=== PATIENT | male | born 1945 | race Caucasian/White ===

== ENCOUNTER → 2016-07-11 | Outpatient (REF) | payer OTHER ==
[2016-07-12 11:35] LABS: ALBUMIN 3.8 GM/DL (3.2-5.2); ALBUMIN/GLOBULIN RATIO 1.27 (1.00-1.93); ALKALINE PHOSPHATASE 101 U/L (45-117); ALT/SGPT 32 U/L (12-78); ANION GAP 9 MEQ/L (8-16); AST/SGOT 22 U/L (15-37); BILIRUBIN,TOTAL 0.4 MG/DL (0.2-1.0); BLOOD UREA NITROGEN 18 MG/DL (7-18); CALCIUM LEVEL 8.9 MG/DL (8.8-10.2); CARBON DIOXIDE LEVEL 28 MEQ/L (21-32); CHLORIDE LEVEL 106 MEQ/L (98-107); CHOLESTEROL LEVEL 300 MG/DL (<200); CREATININE FOR GFR 1.48 MG/DL (0.70-1.30); GLOMERULAR FILTRATION RATE 50.3 (>49); GLUCOSE, FASTING 107 MG/DL (80-110); POTASSIUM SERUM 4.2 MEQ/L (3.5-5.1); SODIUM LEVEL 143 MEQ/L (136-145); TOTAL PROTEIN 6.8 GM/DL (6.4-8.2); TRIGLYCERIDES LEVEL 497 MG/DL (<150)
== END ==
LOC: M SFHCCLAY 15:26
PROVIDERS: ATTEND Family Medicine
DX: I10 Essential (primary) hypertension (principal); E78.5 Hyperlipidemia, unspecified; E89.0 Postprocedural hypothyroidism; Z23 Encounter for immunization
CPT/HCPCS: 80053; 80061; 84443; 90662; G0008; G0463

== ENCOUNTER → 2017-01-23 | Outpatient (REF) | payer OTHER ==
[2017-01-24 12:58] LABS: ALBUMIN 3.9 GM/DL (3.2-5.2); ALBUMIN/GLOBULIN RATIO 1.22 (1.00-1.93); ALKALINE PHOSPHATASE 87 U/L (45-117); ALT/SGPT 30 U/L (12-78); ANION GAP 9 MEQ/L (8-16); AST/SGOT 17 U/L (15-37); BILIRUBIN,TOTAL 0.7 MG/DL (0.2-1.0); BLOOD UREA NITROGEN 17 MG/DL (7-18); CALCIUM LEVEL 9.2 MG/DL (8.8-10.2); CARBON DIOXIDE LEVEL 25 MEQ/L (21-32); CHLORIDE LEVEL 106 MEQ/L (98-107); CHOLESTEROL LEVEL 255 MG/DL (<200); CREATININE FOR GFR 1.24 MG/DL (0.70-1.30); GLOMERULAR FILTRATION RATE > 60.0 (>49); GLUCOSE, FASTING 129 MG/DL (80-110); POTASSIUM SERUM 3.9 MEQ/L (3.5-5.1); SODIUM LEVEL 140 MEQ/L (136-145); TOTAL PROTEIN 7.1 GM/DL (6.4-8.2); TRIGLYCERIDES LEVEL 319 MG/DL (<150)
== END ==
LOC: M SFHCCLAY 14:24
PROVIDERS: ATTEND Family Medicine
DX: E78.5 Hyperlipidemia, unspecified (principal); E89.0 Postprocedural hypothyroidism
CPT/HCPCS: 80053; 80061; 84443; 90670; G0009; G0463

== ENCOUNTER → 2018-05-25 | Outpatient (REF) | payer OTHER ==
[2018-05-25 18:43] LABS: ALBUMIN 3.6 GM/DL (3.2-5.2); ALBUMIN/GLOBULIN RATIO 1.09 (1.00-1.93); ALKALINE PHOSPHATASE 88 U/L (45-117); ALT/SGPT 31 U/L (12-78); ANION GAP 7 MEQ/L (8-16); AST/SGOT 22 U/L (7-37); BILIRUBIN,TOTAL 0.5 MG/DL (0.2-1.0); BLOOD UREA NITROGEN 14 MG/DL (7-18); CALCIUM LEVEL 8.4 MG/DL (8.8-10.2); CARBON DIOXIDE LEVEL 28 MEQ/L (21-32); CHLORIDE LEVEL 104 MEQ/L (98-107); CHOLESTEROL LEVEL 220 MG/DL (<200); CHOLESTEROL RISK RATIO 7.096 (<5); CREATININE FOR GFR 1.19 MG/DL (0.70-1.30); GLOMERULAR FILTRATION RATE > 60.0 (>42); GLUCOSE, FASTING 93 MG/DL (70-100); HDL CHOLESTEROL 31 MG/DL (>40); LDL CHOLESTEROL 122 MG/DL (<100); NON-HDL-C 189 MG/DL; POTASSIUM SERUM 4.3 MEQ/L (3.5-5.1); SODIUM LEVEL 139 MEQ/L (136-145); THYROID STIMULATING HORMONE 0.802 uIU/ML (0.358-3.740); TOTAL PROTEIN 6.9 GM/DL (6.4-8.2); TRIGLYCERIDES LEVEL 337 MG/DL (<150)
== END ==
LOC: M SFHCCLAY 11:52
DX: I10 Essential (primary) hypertension (principal); E89.0 Postprocedural hypothyroidism
CPT/HCPCS: 84443

== ENCOUNTER → 2018-12-06 | Outpatient (REF) | payer MEDICARE ==
[2018-12-07 13:15] LABS: BLOOD UREA NITROGEN 16 MG/DL (7-18); CHLORIDE LEVEL 105 MEQ/L (98-107); CREATININE FOR GFR 1.23 MG/DL (0.70-1.30); GLOMERULAR FILTRATION RATE > 60.0 (>42); GLUCOSE, FASTING 89 MG/DL (70-100); POTASSIUM SERUM 4.3 MEQ/L (3.5-5.1); SODIUM LEVEL 138 MEQ/L (136-145)
[2018-12-07 13:16] LABS: ALBUMIN 3.8 GM/DL (3.2-5.2); ALT/SGPT 31 U/L (12-78); BILIRUBIN,TOTAL 0.6 MG/DL (0.2-1.0); CALCIUM LEVEL 8.7 MG/DL (8.8-10.2); CARBON DIOXIDE LEVEL 27 MEQ/L (21-32); CHOLESTEROL LEVEL 245 MG/DL (<200); CHOLESTEROL RISK RATIO 7.205 (<5); HDL CHOLESTEROL 34 MG/DL (>40); NON-HDL-C 211 MG/DL; THYROID STIMULATING HORMONE 0.976 uIU/ML (0.358-3.740); TOTAL PROTEIN 7.3 GM/DL (6.4-8.2); TRIGLYCERIDES LEVEL 425 MG/DL (<150)
== END ==
LOC: M SFHCCLAY 14:59
PROVIDERS: ATTEND Family Medicine
DX: E78.5 Hyperlipidemia, unspecified (principal); E89.0 Postprocedural hypothyroidism
CPT/HCPCS: 80053; 80061; 84443; G0463

== ENCOUNTER → 2019-12-09 | Outpatient (REF) | payer MEDICARE ==
[2019-12-10 11:52] LABS: BASO % 0.4 % (0.0-1.0); EOS # 0.3 10^3/uL (0.0-0.5); EOS % 4.3 % (0.0-3.0); HEMATOCRIT 45.6 % (42.0-52.0); HEMOGLOBIN 15.1 g/dl (13.5-17.5); LYMPH # 1.9 10^3/uL (1.5-5.0); LYMPH % 27.7 % (24.0-44.0); MEAN CORPUSCULAR HEMOGLOBIN 29.3 pg (27.0-33.0); MEAN CORPUSCULAR HGB CONC 33.1 g/dl (32.0-36.5); MEAN CORPUSCULAR VOLUME 88.5 fl (80.0-96.0); MONO # 0.6 10^3/uL (0.0-0.8); MONO % 8.4 % (0.0-5.0); NEUTROPHILS # 4.1 10^3/uL (1.5-8.5); NEUTROPHILS % 58.9 % (36.0-66.0); PLATELET COUNT, AUTOMATED 212 10^3/uL (150-450); RED BLOOD COUNT 5.15 10^6/uL (4.30-6.10)
[2019-12-10 12:23] LABS: ALBUMIN 3.9 GM/DL (3.2-5.2); ALT/SGPT 51 U/L (12-78); BILIRUBIN,TOTAL 0.9 MG/DL (0.2-1.0); BLOOD UREA NITROGEN 13 MG/DL (7-18); CALCIUM LEVEL 9.2 MG/DL (8.8-10.2); CARBON DIOXIDE LEVEL 27 MEQ/L (21-32); CHLORIDE LEVEL 105 MEQ/L (98-107); CHOLESTEROL LEVEL 231 MG/DL (<200); GLOMERULAR FILTRATION RATE > 60.0 (>42); GLUCOSE, FASTING 90 MG/DL (70-100); HDL CHOLESTEROL 33 MG/DL (>40); LDL CHOLESTEROL 144 MG/DL (<100); NON-HDL-C 198 MG/DL; POTASSIUM SERUM 4.1 MEQ/L (3.5-5.1); SODIUM LEVEL 138 MEQ/L (136-145); THYROID STIMULATING HORMONE 0.594 uIU/ML (0.358-3.740); TOTAL PROTEIN 7.1 GM/DL (6.4-8.2); TRIGLYCERIDES LEVEL 270 MG/DL (<150)
== END ==
LOC: M SFHCCLAY 14:07
PROVIDERS: ATTEND Family Medicine
DX: I10 Essential (primary) hypertension (principal); E78.5 Hyperlipidemia, unspecified; E89.0 Postprocedural hypothyroidism
CPT/HCPCS: 80053; 80061; 84443; 85025; G0463

== ENCOUNTER → 2020-06-30 | Outpatient (CLI) | payer MEDICARE ==
--- NOTE | 2020-06-30 15:59 | REP ---
INDICATION: STENOSIS. COMPARISON: Comparison MRI study is from June 25, 2013.. TECHNIQUE: Sagittal and axial T1 and T2-weighted scans are acquired in the usual fashion with and without fat saturation. Sequences include spin echo, turbo spin-echo, and STIR imaging sequences. FINDINGS: There is slight straightening. Lumbar vertebral body heights are preserved. Alignment is unchanged except at L4-5 where there is a very subtle degenerative 2 mm spondylolisthesis. There is no evidence of spondylolysis. Degenerative disc and osteoarthritic facet changes are noted diffusely. Vacuum phenomena are present at L3-4 L2-3 and L1-2. There is some dilation visible in the infrarenal abdominal aortic caliber. The anterior edge of the abdominal aorta is excluded from the field of view but it is right to left dimension is 2.9 cm. In 2013, this measurement was 2.8 cm. Axial and sagittal images at L1-2 demonstrate diffuse posterior disc bulging. There is moderate central canal stenosis due to diffuse disc bulging, developmentally short pedicles, and ligamentum flavum and facet hypertrophy. Midline AP dimension of the thecal sac at L1-2 is 7 mm. These findings are essentially unchanged. There is some disc bulging and facet hypertrophy encroaching on the foramina bilaterally also unchanged. At L2-L3, the previous study showed a left paracentral focal disc protrusion. This is no longer apparent. There is diffuse disc bulging and mild to moderate central canal stenosis is present but no focal disc protrusion is visible. No nerve root compression is seen. Midline AP dimension of the thecal sac at L2-3 is 9.1 mm. At L3-L4, there is mild central canal stenosis due to diffuse disc bulging in combination with facet and ligamentum flavum hypertrophy. There is bilateral neural foraminal narrowing from disc bulging and associated spurring in combination with facet hypertrophy. These findings are similar to the prior study from 2013. AP dimension of the thecal sac at L3-4 in the midline is 8.8 mm. At L 4 5, in addition to the 2 mm degenerative spondylolisthesis, there is minimal diffuse bulging of the disc margin. There is advanced osteoarthritic facet disease right more so than left. This appears progressed compared to the 2013 study. Canal size is borderline. There is bilateral neural foraminal narrowing. The neural foraminal narrowing may be slightly more prominent as well. No focal disc protrusion. At L5-S1, there is osteoarthritic facet hypertrophy and bilateral neural foraminal narrowing from disc spur discogenic spurring and facet hypertrophy. No canal stenosis is seen. Mild diffuse disc bulging. Findings are felt to be unchanged at L5-S1. IMPRESSION: Advanced degenerative spondylosis with multilevel neural foraminal narrowing. Improvement is noted at L2-3 with progressive osteoarthritic facet disease and bilateral neural foraminal narrowing at L5-S1. Multilevel spinal stenosis as above. Some degree of dilation is seen in the abdominal aorta. The anterior wall is not included in the imaging field of view. Consider abdominal aortic sonography. <Electronically signed by Lonny Rivera > 06/30/20 [id number]
== END ==
LOC: M RAD 14:39
PROVIDERS: ATTEND Family Medicine
DX: M48.062 Spinal stenosis, lumbar region with neurogenic claudication (principal); M51.36 Other intervertebral disc degeneration, lumbar region; M51.37 Other intervertebral disc degeneration, lumbosacral region

== ENCOUNTER → 2020-10-22 | Outpatient (CLI) | payer MEDICARE ==
[~2020-10-22] MED LIST: AMLO2.5T3 PO; CLOP75TA2 PO; CYCL5TAB PO; D31000TA2 PO; ECOT325T7 PO; GABA-1171 PO; HYDR-4514 PO; LEVO150T7 PO; MED REC COMMENT; METH-1165 PO; METO1TAB87 PO; METO25TA4 PO; PRAV40TA2 PO; PRED10TA2 PO; TIZA4TAB4 PO; TRAM50TA2 PO
--- NOTE | 2020-10-22 15:28 | REP ---
INDICATION: [id number] INJURY LOW BACK. COMPARISON: MRI 06/30/2020. TECHNIQUE: Five views lumbosacral spine. FINDINGS: There is very mild loss of height of L1 through L3 unchanged. Moderate diffuse spurring is noted. There is moderate disc space narrowing and subchondral sclerosis with vacuum at L1-2. There is slight narrowing at L2-3 with subchondral sclerosis and vacuum. There is mild narrowing of L 3-4 with subchondral sclerosis and vacuum. There is mild narrowing at L4-5 with subchondral sclerosis. There is moderate narrowing at L5-S1 with subchondral sclerosis and vacuum. There is significant sclerosis and spurring at the posterior facets of L4-5 and L5-S1. There are quite large osteophytes on the right at L1 through L4. There is mild curvature toward the left. The posterior elements are intact. IMPRESSION: Stable mild compression deformities of L1 through L3. Diffuse degenerative changes as above. <Electronically signed by Constantino Santiago > 10/22/20 [id number]
== END ==
LOC: M CLY 14:50
PROVIDERS: ATTEND Physician Assistant
DX: M51.36 Other intervertebral disc degeneration, lumbar region (principal); M51.37 Other intervertebral disc degeneration, lumbosacral region
CPT/HCPCS: 72110; G0463

== ENCOUNTER 2020-11-01 16:20 | Observation (INO) | payer MEDICARE ==
[~2020-11-01] VITALS: Ht 167.6 cm; Wt 126.6 kg
[2020-11-01] MEDS ORDERED: TIZA4TAB4 PO (16:54)
[2020-11-01] MEDS ORDERED: METO1TAB87 PO (16:54)
[2020-11-01] MEDS ORDERED: TRAM50TA2 PO (16:54)
[2020-11-01] MEDS ORDERED: PRAV40TA2 PO (16:54)
[2020-11-01] MEDS ORDERED: AMLO2.5T3 PO (16:54)
[2020-11-01] MEDS ORDERED: GABA-1171 PO (16:54)
[2020-11-01] MEDS ORDERED: LEVO150T7 PO (16:54)
[2020-11-01] MEDS ORDERED: CLOP75TA2 PO (16:54)
[2020-11-01] MEDS ORDERED: dexameTHASONE 20MG/5ML VIAL (J1100 PER 1MG) IV ONE (18:20)
[2020-11-01] MEDS ORDERED: ONDANSETRON 4MG/2ML VIAL IV ONE (18:20)
[2020-11-01] MEDS: MORPHINE 4 MG/ML 1ML VIAL/SYRINGE (J2270) IV PRN ×2 (19:27→21:08)
[2020-11-01 19:31] LABS: BASO % 0.3 % (0.0-1.0); EOS # 0.1 10^3/uL (0.0-0.5); EOS % 1.1 % (0.0-3.0); HEMATOCRIT 45.4 % (42.0-52.0); HEMOGLOBIN 15.3 g/dl (13.5-17.5); LYMPH # 2.2 10^3/uL (1.5-5.0); LYMPH % 21.4 % (24.0-44.0); MEAN CORPUSCULAR HEMOGLOBIN 29.5 pg (27.0-33.0); MEAN CORPUSCULAR HGB CONC 33.7 g/dl (32.0-36.5); MEAN CORPUSCULAR VOLUME 87.5 fl (80.0-96.0); MONO # 1.2 10^3/uL (0.0-0.8); MONO % 11.4 % (2.0-8.0); NEUTROPHILS # 6.8 10^3/uL (1.5-8.5); NEUTROPHILS % 64.8 % (36.0-66.0); PLATELET COUNT, AUTOMATED 321 10^3/uL (150-450); RED BLOOD COUNT 5.19 10^6/uL (4.30-6.10); WHITE BLOOD COUNT 10.5 10^3/uL (4.0-10.0)
[2020-11-01 20:00] LABS: BLOOD UREA NITROGEN 19 MG/DL (7-18); CALCIUM LEVEL 9.1 MG/DL (8.8-10.2); CARBON DIOXIDE LEVEL 25 MEQ/L (21-32); CHLORIDE LEVEL 97 MEQ/L (98-107); CREATININE FOR GFR 1.13 MG/DL (0.70-1.30); GLOMERULAR FILTRATION RATE > 60.0 (>42); GLUCOSE, FASTING 81 MG/DL (70-100); POTASSIUM SERUM 4.5 MEQ/L (3.5-5.1); SODIUM LEVEL 131 MEQ/L (136-145)
[2020-11-01] MEDS ORDERED: LORazepam 2 MG/ML VIAL IV STA (20:03)
[2020-11-01] MEDS ORDERED: METOPROLOL TART 25 MG TABLET PO SCH (21:00)
--- NOTE | 2020-11-01 21:44 | REPVR ---
PROCEDURE INFORMATION: Exam: MR Lumbar Spine Without Contrast Exam date and time: 11/01/2020 6:20 PM Age: 74 years old Clinical indication: Low back pain; Additional info: Sudden increase in pain with radiculopathy R/O darya TECHNIQUE: Imaging protocol: Multiplanar magnetic resonance images of the lumbar spine without intravenous contrast. COMPARISON: MRI-Spine, L.S. without con 06/30/2020 3:02 PM FINDINGS: Vertebrae: Unremarkable. Spinal cord: Normal signal. No cord compression. L1-L2: Disc bulge. Bilateral facet and ligamentum flavum hypertrophy. Moderate to severe spinal canal stenosis. Severe bilateral neural foraminal narrowing. L2-L3: Disc bulge. Bilateral facet and ligamentum flavum hypertrophy. Moderate to severe spinal canal stenosis. Moderate to severe bilateral neural foraminal narrowing. L3-L4: Disc bulge. Bilateral facet and ligamentum flavum hypertrophy. Mild to moderate spinal canal stenosis. Severe bilateral neural foraminal narrowing. L4-L5: Disc bulge. Bilateral facet and ligamentum flavum hypertrophy. No spinal canal stenosis. Severe bilateral neural foraminal narrowing. L5-S1: Disc bulge. Bilateral facet hypertrophy. No spinal canal stenosis. Severe bilateral neural foraminal narrowing. Soft tissues: Unremarkable. IMPRESSION: Multilevel degenerative disc disease with neural foraminal narrowing. Findings have progressed from prior study. Moderate to severe spinal canal stenosis at L1-L2, L2-L3, mild to moderate L3-L4. Severe bilateral neural foraminal narrowing at L1-L2, moderate to severe bilateral L2-L3, severe bilateral L3-L4, L4-L5 and L5-S1. Electronically signed by: Yury Hall On 11/01/2020 21:44:32 PM
[2020-11-01] MEDS ORDERED: ACETAMINOPHEN TAB 650MG DOSE (2X325MG) PO PRN (22:00)
[2020-11-01] MEDS ORDERED: MOM 30ML SUSPENSION UDC PO PRN (22:00)
[2020-11-01] MEDS ORDERED: MORPHINE 4 MG/ML 1ML VIAL/SYRINGE (J2270) IV PRN (22:00)
[2020-11-01] MEDS ORDERED: MAALOX 30 ML SUSP *UDC PO PRN (22:00)
[2020-11-01] MEDS ORDERED: METO25TA4 PO (22:17)
[2020-11-01] MEDS ORDERED: PRED10TA2 PO (22:17)
--- NOTE | 2020-11-01 22:18 | HPEPDOC ---
[facility] Medical History & Physical Date of Admission November 01, 2020 Date of Service: November 01, 2020 History and Physical CHIEF COMPLAINT: Back pain HISTORY OF PRESENT ILLNESS: 74-year-old male seen in the emergency department accompanied by his son Jose. Patient is very hard of hearing history was obtained from both patient and his son Jose. He has a known history of spinal stenosis and presented with uncontrollable back pain. Tells me that he was riding a tractor about 2 weeks ago mowing the lawn when he noticed his back starting to hurt and ever since his been hurting progressively more he has difficulty using his 's walker to be able to get around to alleviate some of the pain. Tells me the pain is mostly around the low back is alleviated with rest and holding still and aggravated with movements. He rates the pain as 10 out of 10 at its worst. Currently manageable with the morphine he received in the emergency department and is feeling a lot better. However he is son Jose is concerned based it might fall because of how severe his pain gets. He is not received epidural injections in the past and has not been seen by pain specialist before. He takes tramadol at home for the pain but hasn't been helping as much lately. MRI of his back performed in the emergency department results below showing worsening of spinal stenosis. He follows with orthopedic surgery Dr. Portillo at his clinic and had been not eligible for back surgery due to his weight and was asked to lose weight first. Other than the back pain he otherwise feels well he denies any chest pain or shortness of breath denies abdominal pain no fevers or chills. He doesn't have problems controlling his stool or urine. Trying to move around to use a urinal is very painful on his back as it has lately been causing his back to spasm. PAST MEDICAL/SURGICAL HISTORY: Coronary artery disease with stenting 2013 & 2017 Hypothyroidism Hypertension Hyperlipidemia Osteoarthritis Sleep apnea uses CPAP machine Appendectomy SOCIAL HISTORY: Drinks 2-3 shots of vodka in his coffee daily but hasn't had it for the past several weeks according to some Denies tobacco use currently quit but can't tell me when Denies illicit drug use FAMILY HISTORY: Reviewed and none contributory to this admission ALLERGIES: Please see below. REVIEW OF SYSTEMS: 10 point review of systems complete all negative otherwise stated in HPI HOME MEDICATIONS: Please see below. PHYSICAL EXAMINATION: Constitutional: Awake and alert, in no apparent distress when laying still but appears uncomfortable when trying to move around, very difficult of hearing ENT: Sclera are clear. Mucosa is moist. Respiratory: Lungs CTA bilaterally. No respiratory distress. Cardiovascular: Regular heart rate and rhythm Gastrointestinal: Abdomen is soft, non distended, non tender Musculoskeletal: No lower extremity edema. Neurologic: No focal neurological deficit. Mental Status: A&O x3, normal affect Skin: No visible rashes LABORATORY DATA: See below. IMAGING: See chart MRI lumbar spine w/o contrast IMPRESSION: Multilevel degenerative disc disease with neural foraminal narrowing. Findings have progressed from prior study. Moderate to severe spinal canal stenosis at L1-L2, L2-L3, mild to moderate L3-L4. Severe bilateral neural foraminal narrowing at L1-L2, moderate to severe bilateral L2-L3, severe bilateral L3-L4, L4-L5 and L5-S1. MICROBIOLOGY: Please see below. ASSESSMENT/PLAN 74-year-old male known history of severe spinal stenosis and back pain presents to the hospital because of worsening back pain and uncontrollable pain with admitted for observation for pain management. # Back pain and spasms: Pain control with Tylenol, [place] for severe pain, IV morphine for breakthrough pain. Consider pain clinic consult in the morning. Trial of flexiril for the spasms. Barriga catheter for comfort patient into much pain when trying to move around to use urinal, consider removing tomorrow once better pain control was achieved. Patient follows with orthopedic surgery Dr. Portillo and should follow back up with him upon discharge. # Alcohol abuse: drinks vodka daily. WA protocol. MVN, thiamine, folate. Ativan PRN. # CAD with stenting: continue ASA, plavix home meds. Continue metoprolol. # Hypertension: Continue home meds. Monitor and titrate # Hypothyroidism: resume Synthroid. # AMADOR: May use CPAP machine # Hyperlipidemia: Continue home pravastatin # DVT prophylaxis: Wales[place] A Yousef Hospitalist Vital Signs Vital Signs Date Time Temp Pulse Resp B/P (MAP) Pulse Ox O2 Delivery O2 Flow Rate FiO2 11/01/20 22:00 72 18 161/91 (114) 95 Room Air 11/01/20 16:20 97.9 Laboratory Data Labs 24H Laboratory Tests 2 11/01/20 18:20: Immature Granulocyte % (Auto) 1.0, Neutrophils (%) (Auto) 64.8, Lymphocytes (%) (Auto) 21.4L, Monocytes (%) (Auto) 11.4H, Eosinophils (%) (Auto) 1.1, Basophils (%) (Auto) 0.3, Neutrophils # (Auto) 6.8, Lymphocytes # (Auto) 2.2, Monocytes # (Auto) 1.2H, Eosinophils # (Auto) 0.1, Basophils # (Auto) 0.0, Nucleated Red Blood Cells % (auto) 0.0, Anion Gap 9, Glomerular Filtration Rate > 60.0, Calcium Level 9.1 11/01/20 22:04: CBC/BMP Laboratory Tests 11/01/20 18:20 Home Medications Scheduled Amlodipine Besylate (Amlodipine Besylate) 2.5 Mg Tablet, 2.5 MG PO DAILY Aspirin (Ecotrin) 325 Mg Tablet.dr, 325 MG PO DAILY Cholecalciferol (Vitamin D3) (Vitamin D3) 1,000 Unit Tablet, 1,000 UNITS PO DAILY Clopidogrel Bisulfate (Clopidogrel) 75 Mg Tablet, 75 MG PO DAILY Gabapentin (Gabapentin) 100 Mg Capsule, 100 MG PO TID Levothyroxine Sodium (Levothyroxine Sodium) 150 Mcg Tablet, 150 MCG PO DAILY Metoprolol Tartrate (Metoprolol Tartrate) 25 Mg Tablet, 25 MG PO QAM Metoprolol Tartrate (Metoprolol Tartrate) 25 Mg Tablet, 12.5 MG PO QPM Pravastatin Sodium (Pravastatin Sodium) 40 Mg Tablet, 40 MG PO DAILY Prednisone (Prednisone) 10 Mg Tablet, 10 MG PO TAPER TAKE FOUR TABLETS BY MOUTH EVERY DAY FOR 3 DAYS THEN 3 ONCE DAILY FOR 3 DAYS THEN 2 ONCE DAILY FOR 3 DAYS THEN 1 ONCE DAILY FOR 3 DAYS. STARTED 10/22/20 X 12 DAYS Scheduled PRN Tizanidine HCl (Tizanidine HCl) 4 Mg Tablet, 4 PO QHS PRN for pain Tramadol HCl (Tramadol HCl) 50 Mg Tablet, 50 MG PO QID PRN for pain Miscellaneous Medications [Med Rec Comment] PATIENT UNABLE TO VERIFY MEDS AND LAST DOSE. SPOKE WITH SON,USED EXTERNAL MED HISTORY, LAST OFFICE VISIT AND CALLED PHARMACY TO VERIFY Allergies Coded Allergies: No Known Allergies (Unverified , 11/01/20) A-FIB/CHADSVASC A-FIB History Current/History of A-Fib/PAF?: No YOUSEF,KYA Garcia MD November 01, 2020 22:18
[2020-11-01] MEDS ORDERED: ECOT325T7 PO (22:19)
[2020-11-01] MEDS ORDERED: D31000TA2 PO (22:19)
[2020-11-01] MEDS ORDERED: MED REC COMMENT (22:19)
[2020-11-01] MEDS ORDERED: LORazepam 2 MG TAB PO PRN (22:25)
[2020-11-01 22:51] LABS: RSV AMPLIFICATION NEGATIVE (NEGATIVE)
[2020-11-01] MEDS: THIAMINE 100 MG TAB PO SCH (23:11)
[2020-11-01] MEDS: DOCUSATE SODIUM 100MG CAPSULE PO SCH (23:11)
[2020-11-01] MEDS: ANEXSIA, NORCO 7.5MG/325MG TABLET(HYDROCODONE/APAP) PO PRN (23:12)
[2020-11-01] MEDS: CYCLOBENZAPRINE 5MG TABLET PO PRN (23:16)
[2020-11-02 01:00] VITALS: BP_SYST 124; BP_SYST 165; BP_DIAS 58; BP_DIAS 95
[2020-11-02 01:01] VITALS: BP 124/58
[2020-11-02] MEDS: CYCLOBENZAPRINE 5MG TABLET PO PRN ×2 (05:52→16:39)
[2020-11-02 06:00] VITALS: BP 150/88
[2020-11-02 07:50] LABS: HEMATOCRIT 46.7 % (42.0-52.0); HEMOGLOBIN 15.6 g/dl (13.5-17.5); MEAN CORPUSCULAR HEMOGLOBIN 29.2 pg (27.0-33.0); MEAN CORPUSCULAR HGB CONC 33.4 g/dl (32.0-36.5); MEAN CORPUSCULAR VOLUME 87.3 fl (80.0-96.0); PLATELET COUNT, AUTOMATED 311 10^3/uL (150-450); RED BLOOD COUNT 5.35 10^6/uL (4.30-6.10); WHITE BLOOD COUNT 10.9 10^3/uL (4.0-10.0)
[2020-11-02 08:00] VITALS: O2SAT 98
[2020-11-02 08:08] LABS: ALBUMIN 3.2 GM/DL (3.2-5.2); ALT/SGPT 52 U/L (12-78); BILIRUBIN,TOTAL 1.2 MG/DL (0.2-1.0); BLOOD UREA NITROGEN 18 MG/DL (7-18); CALCIUM LEVEL 8.9 MG/DL (8.8-10.2); CARBON DIOXIDE LEVEL 23 MEQ/L (21-32); CHLORIDE LEVEL 101 MEQ/L (98-107); CREATININE FOR GFR 0.96 MG/DL (0.70-1.30); GLOMERULAR FILTRATION RATE > 60.0 (>42); GLUCOSE, FASTING 113 MG/DL (70-100); MAGNESIUM LEVEL 2.6 MG/DL (1.8-2.4); SODIUM LEVEL 134 MEQ/L (136-145); TOTAL PROTEIN 7.2 GM/DL (6.4-8.2)
[2020-11-02] MEDS ORDERED: MULTIVITAMINS/MINERALS THERAP 1 TAB PO SCH (09:00)
[2020-11-02] MEDS ORDERED: LEVOTHYROXINE 150MCG TABLET (0.15MG) PO SCH ×2 (09:00)
[2020-11-02] MEDS ORDERED: PRAVASTATIN 20 MG TAB PO SCH (09:00)
[2020-11-02] MEDS ORDERED: METOPROLOL TART 25 MG TABLET PO SCH (09:00)
[2020-11-02] MEDS ORDERED: ENOXAPARIN 40MG/0.4ML SYRINGE (J1650 PER 10MG) SC SCH (09:00)
[2020-11-02] MEDS ORDERED: CLOPIDOGREL 75 MG TAB PO SCH (09:00)
[2020-11-02] MEDS ORDERED: FOLIC ACID 1 MG TAB PO SCH (09:00)
[2020-11-02] MEDS ORDERED: ASPIRIN ENTERIC 325 MG TAB PO SCH (09:00)
[2020-11-02] MEDS: GABAPENTIN 100 MG CAP PO SCH ×2 (09:28→15:22)
[2020-11-02] MEDS: DOCUSATE SODIUM 100MG CAPSULE PO SCH (09:28)
[2020-11-02] MEDS: THIAMINE 100 MG TAB PO SCH (09:28)
[2020-11-02 09:31] VITALS: BP 174/102
[2020-11-02] MEDS ORDERED: HYDR-4514 PO (10:18)
[2020-11-02] MEDS ORDERED: CYCL5TAB PO (10:18)
--- NOTE | 2020-11-02 10:47 | DS.PDOC ---
Discharge Summary General Date of Admission November 01, 2020 at 16:21 Date of Discharge 11/02/2020 Discharge Summary PROCEDURES PERFORMED DURING STAY: [None]. ADMITTING DIAGNOSES / DISCHARGE DIAGNOSES: Back pain and spasms - likely 2/2 Multilevel degenerative disc disease with neural foraminal narrowing Leukocytosis Alcohol abuse CAD with stenting Hypertension HypothyroidismOSA Hyperlipidemia DVT prophylaxis COMPLICATIONS/CHIEF COMPLAINT: Back pain HISTORY OF PRESENT ILLNESS: Patient is 74-year-old male who presented to emergency room because of worsening back pain. Patient reports that he follows with Dr. Montgomery orthopedic surgery as an outpatient for his back pain has recently had imaging. Patient reported that his pain has been uncontrollable and came to the emergency room for further evaluation. MRI of his back performed in the emergency department results below showing worsening of spinal stenosis. Patient is been admitted to the hospital service for further evaluation and management of his pain. HOSPITAL COURSE: Back pain and spasms - likely 2/2 Multilevel degenerative disc disease with neural foraminal narrowing - Patient reports that this morning his pain is better controlled reported that he was able to sleep at night - Patient denied any loss of control his bowel or bladder - Barriga catheter that was placed initially for comfort will be discontinued today - Physical reveals 5/5 strength at bilateral lower extremities - Patient follows with Dr. Montgomery of Orthopedic surgery / Back specialist as an outpatient - Patient will be worked with physical therapy and if he clears will be discharged home with outpatient follow-up with primary care provider and orthopedic surgery - c/w Percocet and Flexeril on discharge Leukocytosis - Likely 2/2 corticosteroid use - No evidence of fevers. Review of systems negative for any source of infection - Will continue to hold off on antibiotics Alcohol abuse - Patient reports that he drinks vodka daily - No evidence of alcohol withdrawal - CIWA protocol with Ativan - c/w Thiamine / Folate / MVI CAD with stenting (2013, 2016) - c/w ASA, Plavix, Metoprolol Hypertension - BP well controlled - c/w Metoprolol / Amlodipine Hypothyroidism - c/w levothyroxine AMADOR - May use CPAP machine Hyperlipidemia - c/w pravastatin DVT prophylaxis - c/w Lovenox DISCHARGE MEDICATIONS: Please see below. ALLERGIES: Please see below. PHYSICAL EXAMINATION ON DISCHARGE: Vitals (See below) General: Lying in bed, appeared comfortable, AAOx3 HEENT: NC, AT CVS: +S1S2 Lungs: Fair air entry b/l, no wheezing, rhonchi or rales Abdomen: Soft, ND, NT Extremities: - Edema, - Calf tenderness Neruo: Patient is 5/5 strength of bilateral lower extremities without any sensory deficits bilaterally LABORATORY DATA: Please see below. IMAGING: MRI LS Spine 11/01: Multilevel degenerative disc disease with neural foraminal narrowing. Findings have progressed from prior study. Moderate to severe spinal canal stenosis at L1-L2, L2-L3, mild to moderate L3- L4. Severe bilateral neural foraminal narrowing at L1-L2, moderate to severe bilateral L2-L3, severe bilateral L3-L4, L4-L5 and L5-S1. ACTIVITY: [As tolerated]. DISCHARGE PLAN: Follow-up with primary care provider and orthopedic surgery within the next 7 days Remain compliant with treatment plan and medications Return to the ER if you experience any problems DISPOSITION: Home with services DISCHARGE CONDITION: [Stable]. TIME SPENT ON DISCHARGE: 35 minutes. Vital Signs/I&Os Vital Signs Date Time Temp Pulse Resp B/P (MAP) Pulse Ox O2 Delivery O2 Flow Rate FiO2 11/02/20 09:31 76 174/102 11/02/20 08:00 2.0 11/02/20 06:00 98.6 18 96 Nasal Cannula I&O- Last 24 Hours up to 6 AM 11/02/20 06:00 Intake Total 250 ml Output Total 2100 ml Balance -1850 ml Laboratory Data Labs 24H Laboratory Tests 2 11/01/20 18:20: Immature Granulocyte % (Auto) 1.0, Neutrophils (%) (Auto) 64.8, Lymphocytes (%) (Auto) 21.4L, Monocytes (%) (Auto) 11.4H, Eosinophils (%) (Auto) 1.1, Basophils (%) (Auto) 0.3, Neutrophils # (Auto) 6.8, Lymphocytes # (Auto) 2.2, Monocytes # (Auto) 1.2H, Eosinophils # (Auto) 0.1, Basophils # (Auto) 0.0, Nucleated Red Blood Cells % (auto) 0.0, Anion Gap 9, Glomerular Filtration Rate > 60.0, Calcium Level 9.1 11/01/20 22:04: Coronavirus (COVID-19)(PCR) NEGATIVE, Influenza Type A (RT-PCR) NEGATIVE, Influenza Type B (RT-PCR) NEGATIVE, Respiratory Syncytial Virus (PCR) NEGATIVE 11/02/20 06:36: Nucleated Red Blood Cells % (auto) 0.0, Anion Gap 10, Glomerular Filtration Rate > 60.0, Calcium Level 8.9, Magnesium Level 2.6H, Total Bilirubin 1.2H, Aspartate Amino Transf (AST/SGOT) 29, Alanine Aminotransferase (ALT/SGPT) 52, Alkaline Phosphatase 81, Total Protein 7.2, Albumin 3.2, Albumin/Globulin Ratio 0.8 CBC/BMP Laboratory Tests 11/01/20 18:20 11/02/20 06:36 Discharge Medications Scheduled Amlodipine Besylate (Amlodipine Besylate) 2.5 Mg Tablet, 2.5 MG PO DAILY, (Reported) Aspirin (Ecotrin) 325 Mg Tablet.dr, 325 MG PO DAILY, (Reported) Cholecalciferol (Vitamin D3) (Vitamin D3) 1,000 Unit Tablet, 1,000 UNITS PO DAILY, (Reported) Clopidogrel Bisulfate (Clopidogrel) 75 Mg Tablet, 75 MG PO DAILY, (Reported) Gabapentin (Gabapentin) 100 Mg Capsule, 100 MG PO TID, (Reported) Levothyroxine Sodium (Levothyroxine Sodium) 150 Mcg Tablet, 150 MCG PO DAILY, (Reported) Metoprolol Tartrate (Metoprolol Tartrate) 25 Mg Tablet, 25 MG PO QAM, (Reported) Metoprolol Tartrate (Metoprolol Tartrate) 25 Mg Tablet, 12.5 MG PO QPM, (Reported) Pravastatin Sodium (Pravastatin Sodium) 40 Mg Tablet, 40 MG PO DAILY, (Reported) Prednisone (Prednisone) 10 Mg Tablet, 10 MG PO TAPER, (Reported) TAKE FOUR TABLETS BY MOUTH EVERY DAY FOR 3 DAYS THEN 3 ONCE DAILY FOR 3 DAYS THEN 2 ONCE DAILY FOR 3 DAYS THEN 1 ONCE DAILY FOR 3 DAYS. STARTED 10/22/20 X 12 DAYS Scheduled PRN Cyclobenzaprine HCl (Cyclobenzaprine HCl) 5 Mg Tablet, 10 MG PO BID PRN for SPA SMS Hydrocodone/Acetaminophen (Hydrocodone-Acetamin 7.5-325) 1 Each Tablet, 1 TAB PO Q8HP PRN for Severe PAIN (PS 6-10) Tramadol HCl (Tramadol HCl) 50 Mg Tablet, 50 MG PO QID PRN for pain, (Reported) Miscellaneous Medications [Med Rec Comment] , (Reported) PATIENT UNABLE TO VERIFY MEDS AND LAST DOSE. SPOKE WITH SON,USED EXTERNAL MED HISTORY, LAST OFFICE VISIT AND CALLED PHARMACY TO VERIFY Allergies Coded Allergies: No Known Allergies (Unverified , 11/01/20) BRUCE CARL MD November 02, 2020 10:47
[2020-11-02 14:00] VITALS: BP 138/72
[2020-11-02] MEDS: ANEXSIA, NORCO 7.5MG/325MG TABLET(HYDROCODONE/APAP) PO PRN (16:40)
== END 2020-11-02 16:50 | disposition home health service (06) ==
LOC: M ED 16:20 → M ED INP 16:21 → ENRESERV 23:36 → M MS5PR 11-02 00:35
PROVIDERS: ADMIT Family Medicine; ATTEND Family Medicine
DX: M62.830 Muscle spasm of back (principal); M51.16 Intervertebral disc disorders with radiculopathy, lumbar region; M48.061 Spinal stenosis, lumbar region without neurogenic claudication; D72.829 Elevated white blood cell count, unspecified; F10.10 Alcohol abuse, uncomplicated; I25.10 Atherosclerotic heart disease of native coronary artery without angina pectoris; Z98.61 Coronary angioplasty status; I10 Essential (primary) hypertension; E03.9 Hypothyroidism, unspecified; G47.33 Obstructive sleep apnea (adult) (pediatric); E78.49 Other hyperlipidemia; Z79.82 Long term (current) use of aspirin; Z79.52 Long term (current) use of systemic steroids; Z79.899 Other long term (current) drug therapy
CPT/HCPCS: 36415; 51702; 72148; 80048; 80053; 83735; 85025; 85027; 87631; 93041; 94760; 96372; 96374; 96375; 96376; 97161; 97530; 99285; G0378; J1100; J1650; J2060; J2270; J2405

== ENCOUNTER 2020-11-04 13:53 | Emergency (ER) | payer MEDICARE ==
[~2020-11-04] VITALS: Ht 167.6 cm; Wt 122.7 kg
[~2020-11-04 13:53] MED LIST changes: -METH-1165 PO
[2020-11-04] MEDS ORDERED: diazePAM 10MG/2ML SYRINGE (J3360 PER 5MG) IM ONE (16:25)
[2020-11-04] MEDS ORDERED: PERCOCET 5MG/325MG TAB PO ONE (16:25)
[2020-11-04] MEDS ORDERED: methylPREDNISolone 125MG 2ML VIAL IM ONE (16:25)
[2020-11-04] MEDS ORDERED: METHOCARBAMOL 1,000 MG/10 ML VIAL (J2800) IM ONE (17:50)
[2020-11-04 18:21] VITALS: BP 136/63
[2020-11-04] MEDS ORDERED: METH-1165 PO (18:37)
== END 2020-11-04 20:02 | disposition home or self-care (01) ==
LOC: M ED 13:53
DX: M62.830 Muscle spasm of back (principal); I25.10 Atherosclerotic heart disease of native coronary artery without angina pectoris; I10 Essential (primary) hypertension; E78.5 Hyperlipidemia, unspecified; G47.33 Obstructive sleep apnea (adult) (pediatric); M51.9 Unspecified thoracic, thoracolumbar and lumbosacral intervertebral disc disorder; M48.00 Spinal stenosis, site unspecified; Z79.01 Long term (current) use of anticoagulants; Z79.890 Hormone replacement therapy; Z79.82 Long term (current) use of aspirin; Z79.899 Other long term (current) drug therapy; Z86.39 Personal history of other endocrine, nutritional and metabolic disease
CPT/HCPCS: 96372; 99283; J2800; J2930; J3360

== ENCOUNTER 2020-11-17 14:39 | Emergency (ER) | payer MEDICARE ==
[~2020-11-17] VITALS: Ht 167.6 cm; Wt 122.7 kg
[~2020-11-17 14:39] MED LIST changes: +METH-1165 PO
[2020-11-17] MEDS ORDERED: NALO25TA PO (14:48)
[2020-11-17] MEDS ORDERED: BACL10TA8 PO (14:48)
[2020-11-17] MEDS ORDERED: HYDR-3716 PO (14:48)
[2020-11-17] MEDS ORDERED: MORP-69 PO (14:48)
[2020-11-17] MEDS ORDERED: DULC5TAB PO (14:49)
[2020-11-17] MEDS ORDERED: MORPHINE 4 MG/ML 1ML VIAL/SYRINGE (J2270) IV ONE (17:10)
[2020-11-17 17:42] LABS: BASO % 0.2 % (0.0-1.0); EOS # 0.2 10^3/uL (0.0-0.5); EOS % 1.9 % (0.0-3.0); HEMATOCRIT 46.8 % (42.0-52.0); HEMOGLOBIN 15.2 g/dl (13.5-17.5); LYMPH # 1.4 10^3/uL (1.5-5.0); MEAN CORPUSCULAR HEMOGLOBIN 28.7 pg (27.0-33.0); MEAN CORPUSCULAR HGB CONC 32.5 g/dl (32.0-36.5); MEAN CORPUSCULAR VOLUME 88.3 fl (80.0-96.0); MONO # 0.7 10^3/uL (0.0-0.8); MONO % 8.3 % (2.0-8.0); NEUTROPHILS # 6.4 10^3/uL (1.5-8.5); NEUTROPHILS % 73.1 % (36.0-66.0); PLATELET COUNT, AUTOMATED 267 10^3/uL (150-450); WHITE BLOOD COUNT 8.8 10^3/uL (4.0-10.0)
[2020-11-17 18:00] LABS: C REACTIVE PROTEIN QUANTITATIV 5.02 MG/DL (0.00-0.30); TOTAL PROTEIN 7.5 GM/DL (6.4-8.2)
--- NOTE | 2020-11-17 18:08 | REP ---
INDICATION: no bowel movewment 7 days COMPARISON: None. TECHNIQUE: Supine view of the abdomen and pelvis. FINDINGS: Bowel gas pattern is nonspecific and without obstruction or perforation. No significant obvious fecal stasis noted. No organomegaly. No abnormal calcifications. Skeletal structures intact. Surgical clips in the right lower quadrant may represent prior appendectomy. IMPRESSION: Relatively nonspecific bowel gas pattern. No evidence for obstruction or perforation. No obvious fecal stasis. <Electronically signed by Brian Edmondson > 11/17/20 [id number]
[2020-11-17 18:10] LABS: ERYTHROCYTE SEDIMENTATION RATE 64 mm/hr (0-20)
[2020-11-17 18:34] LABS: BILIRUBIN,DIRECT 0.2 MG/DL (0.0-0.2); BILIRUBIN,TOTAL 0.8 MG/DL (0.2-1.0); TOTAL PROTEIN 8.2 GM/DL (6.4-8.2)
[2020-11-17] MEDS ORDERED: BACLOFEN 10 MG TAB PO ONE ×2 (19:20→23:30)
[2020-11-17] MEDS ORDERED: MORPHINE 15 MG SA TAB PO ONE (19:25)
[2020-11-17] MEDS ORDERED: GABAPENTIN 300 MG CAP PO ONE ×2 (19:25→23:30)
[2020-11-17 19:35] LABS: BLOOD UREA NITROGEN 14 MG/DL (7-18); CALCIUM LEVEL 9.5 MG/DL (8.8-10.2); CARBON DIOXIDE LEVEL 26 MEQ/L (21-32); CHLORIDE LEVEL 99 MEQ/L (98-107); CREATININE FOR GFR 0.92 MG/DL (0.70-1.30); GLOMERULAR FILTRATION RATE > 60.0 (>42); GLUCOSE, FASTING 100 MG/DL (70-100); POTASSIUM SERUM 5.1 MEQ/L (3.5-5.1); SODIUM LEVEL 132 MEQ/L (136-145)
[2020-11-17] MEDS ORDERED: ISOVUE-370 76% 100ML VIAL As Ordered ONE (19:40)
[2020-11-17] MEDS ORDERED: NS 1,000 ML IV ONE (19:40)
--- NOTE | 2020-11-17 21:09 | REPVR ---
PROCEDURE INFORMATION: Exam: CT Abdomen And Pelvis With Contrast Exam date and time: 11/17/2020 7:39 PM Age: 74 years old Clinical indication: Other: No bm; Additional info: No bm in 8 days TECHNIQUE: Imaging protocol: Computed tomography of the abdomen and pelvis with contrast. Radiation optimization: All CT scans at this facility use at least one of these dose optimization techniques: automated exposure control; mA and/or kV adjustment per patient size (includes targeted exams where dose is matched to clinical indication); or iterative reconstruction. Contrast material: ISOVUE 370; Contrast volume: 100 ml; Contrast route: INTRAVENOUS (IV); COMPARISON: CR Abdomen,Flat Plate KUB 11/17/2020 5:38 PM FINDINGS: Lungs: Bibasilar atelectasis. Liver: There is a diffuse decrease in hepatic parenchymal density, consistent with steatosis. Gallbladder and bile ducts: Normal. No calcified stones. No ductal dilation. Pancreas: Normal. No ductal dilation. Spleen: Normal. No splenomegaly. Adrenal glands: Normal. No mass. Kidneys and ureters: Normal. No hydronephrosis. Stomach and bowel: There is increased feces throughout the colon consistent with constipation. Appendix: No evidence of appendicitis. Intraperitoneal space: Unremarkable. No free air. No significant fluid collection. 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 Lymph nodes: Unremarkable. No enlarged lymph nodes. Urinary bladder: Unremarkable as visualized. Reproductive: Unremarkable as visualized. Bones/joints: Severe central spinal stenosis L1-L2, L2-L3, L3-L4 and L4-L5. Bilateral facet joint arthropathy L5-S1. Shallow levoscoliosis. Soft tissues: Small left inguinal hernia without incarceration. IMPRESSION: 1. There is a diffuse decrease in hepatic parenchymal density, consistent with steatosis. 2. 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 3. There is increased feces throughout the colon consistent with constipation. Electronically signed by: Isaiah Koehler On 11/17/2020 21:08:44 PM
[2020-11-17] MEDS ORDERED: METHYLNALTREXONE BROMIDE 12 MG/0.6 ML VIAL (RELISTOR) SC ONE (21:15)
[2020-11-17] MEDS ORDERED: FLEET OIL RETENTION ENEMA PR PRN (23:30)
[2020-11-17] MEDS ORDERED: methylPREDNISolone 125MG 2ML VIAL IV ONE (23:30)
[2020-11-17] MEDS ORDERED: LACTULOSE 20 GM/30 ML SYRUP UD PO ONE (23:30)
[2020-11-18] MEDS ORDERED: ENEMENE8 PR (00:09)
[2020-11-18] MEDS ORDERED: LACT20EL PO (00:09)
[2020-11-18 00:33] VITALS: BP 160/96
[2020-11-18 14:53] LABS: ALBUMIN % 47.7 % (55.8-66.1); ALPHA-1-GLOBULIN % 7.6 % (2.9-4.9); ALPHA-2-GLOBULINS % 22.5 % (7.1-11.8); BETA-1-GLOBULINS % 5.7 % (4.7-7.2)
[2020-11-18 14:54] LABS: ALBUMIN 3.58 GM/DL (3.29-5.55); ALPHA-1-GLOBULINS 0.57 GM/DL (0.17-0.41); ALPHA-2-GLOBULINS 1.69 GM/DL (0.42-0.99); BETA-1-GLOBULINS 0.43 GM/DL (0.28-0.60); BETA-2-GLOBULINS 0.53 GM/DL (0.19-0.55); BETA-2-GLOBULINS % 7.1 % (3.2-6.5); GAMMA GLOBULIN % 9.4 % (11.1-18.8); GAMMA GLOBULINS 0.71 GM/DL (0.65-1.58)
== END 2020-11-18 00:35 | disposition home or self-care (01) ==
LOC: M ED 14:39
DX: M48.061 Spinal stenosis, lumbar region without neurogenic claudication (principal); M62.830 Muscle spasm of back; G89.29 Other chronic pain; K59.00 Constipation, unspecified; I25.10 Atherosclerotic heart disease of native coronary artery without angina pectoris; I10 Essential (primary) hypertension; G47.33 Obstructive sleep apnea (adult) (pediatric); M81.0 Age-related osteoporosis without current pathological fracture; Z79.899 Other long term (current) drug therapy; Z79.01 Long term (current) use of anticoagulants; Z79.890 Hormone replacement therapy; Z79.82 Long term (current) use of aspirin; Z86.39 Personal history of other endocrine, nutritional and metabolic disease; Z95.1 Presence of aortocoronary bypass graft; Z98.890 Other specified postprocedural states; Z87.891 Personal history of nicotine dependence; Z87.39 Personal history of other diseases of the musculoskeletal system and connective tissue
CPT/HCPCS: 74018; 74177; 80048; 80076; 81001; 84165; 85025; 85652; 86140; 96361; 96374; 96375; 99284; J2270; J2930; Q9967

== ENCOUNTER → 2020-11-30 | Outpatient (REF) | payer MEDICARE ==
[~2020-11-30] MED LIST changes: +BACL10TA8 PO; +DULC5TAB PO; +ENEMENE8 PR; +HYDR-3716 PO; +LACT20EL PO; +MORP-69 PO; +NALO25TA PO
[2020-11-30 16:29] LABS: BASO # 0.1 10^3/uL (0.0-0.2); BASO % 0.8 % (0.0-1.0); EOS # 0.2 10^3/uL (0.0-0.5); EOS % 3.3 % (0.0-3.0); HEMATOCRIT 41.1 % (42.0-52.0); HEMOGLOBIN 13.2 g/dl (13.5-17.5); LYMPH # 1.9 10^3/uL (1.5-5.0); LYMPH % 28.1 % (24.0-44.0); MEAN CORPUSCULAR HEMOGLOBIN 28.8 pg (27.0-33.0); MEAN CORPUSCULAR HGB CONC 32.1 g/dl (32.0-36.5); MEAN CORPUSCULAR VOLUME 89.5 fl (80.0-96.0); MONO # 0.7 10^3/uL (0.0-0.8); MONO % 10.8 % (2.0-8.0); NEUTROPHILS # 3.7 10^3/uL (1.5-8.5); NEUTROPHILS % 56.5 % (36.0-66.0); PLATELET COUNT, AUTOMATED 313 10^3/uL (150-450); RED BLOOD COUNT 4.59 10^6/uL (4.30-6.10); WHITE BLOOD COUNT 6.6 10^3/uL (4.0-10.0)
[2020-11-30 17:03] LABS: ALT/SGPT 24 U/L (12-78); BILIRUBIN,TOTAL 0.6 MG/DL (0.2-1.0); BLOOD UREA NITROGEN 11 MG/DL (7-18); CALCIUM LEVEL 9.1 MG/DL (8.8-10.2); CARBON DIOXIDE LEVEL 28 MEQ/L (21-32); CHLORIDE LEVEL 104 MEQ/L (98-107); CREATININE FOR GFR 0.91 MG/DL (0.70-1.30); GLOMERULAR FILTRATION RATE > 60.0 (>42); GLUCOSE, FASTING 81 MG/DL (70-100); POTASSIUM SERUM 4.2 MEQ/L (3.5-5.1); SODIUM LEVEL 139 MEQ/L (136-145); TOTAL PROTEIN 6.6 GM/DL (6.4-8.2); VANCOMYCIN LEVEL TROUGH 9.5 UG/ML (10.0-20.0)
[2020-11-30 17:06] LABS: ERYTHROCYTE SEDIMENTATION RATE 83 mm/hr (0-20)
== END ==
LOC: M SHH 15:56
PROVIDERS: ATTEND Internal Medicine Infectious Disease
DX: M46.46 Discitis, unspecified, lumbar region (principal); M46.26 Osteomyelitis of vertebra, lumbar region; M46.28 Osteomyelitis of vertebra, sacral and sacrococcygeal region

== ENCOUNTER → 2020-12-07 | Outpatient (REF) | payer MEDICARE ==
[2020-12-07 19:09] LABS: BASO # 0.1 10^3/uL (0.0-0.2); BASO % 0.7 % (0.0-1.0); EOS # 0.1 10^3/uL (0.0-0.5); EOS % 1.9 % (0.0-3.0); HEMATOCRIT 41.7 % (42.0-52.0); HEMOGLOBIN 13.7 g/dl (13.5-17.5); LYMPH # 1.6 10^3/uL (1.5-5.0); LYMPH % 21.5 % (24.0-44.0); MEAN CORPUSCULAR HEMOGLOBIN 29.1 pg (27.0-33.0); MEAN CORPUSCULAR HGB CONC 32.9 g/dl (32.0-36.5); MEAN CORPUSCULAR VOLUME 88.5 fl (80.0-96.0); MONO # 0.6 10^3/uL (0.0-0.8); MONO % 8.7 % (2.0-8.0); NEUTROPHILS # 4.8 10^3/uL (1.5-8.5); NEUTROPHILS % 66.9 % (36.0-66.0); PLATELET COUNT, AUTOMATED 313 10^3/uL (150-450); RED BLOOD COUNT 4.71 10^6/uL (4.30-6.10); WHITE BLOOD COUNT 7.2 10^3/uL (4.0-10.0)
[2020-12-07 19:17] LABS: ALBUMIN 3.1 GM/DL (3.2-5.2); ALT/SGPT 24 U/L (12-78); BILIRUBIN,TOTAL 0.9 MG/DL (0.2-1.0); BLOOD UREA NITROGEN 12 MG/DL (7-18); C REACTIVE PROTEIN QUANTITATIV 1.88 MG/DL (0.00-0.30); CARBON DIOXIDE LEVEL 27 MEQ/L (21-32); CHLORIDE LEVEL 102 MEQ/L (98-107); CREATININE FOR GFR 1.02 MG/DL (0.70-1.30); GLOMERULAR FILTRATION RATE > 60.0 (>42); GLUCOSE, FASTING 97 MG/DL (70-100); POTASSIUM SERUM 4.1 MEQ/L (3.5-5.1); SODIUM LEVEL 137 MEQ/L (136-145); TOTAL PROTEIN 6.8 GM/DL (6.4-8.2); VANCOMYCIN LEVEL TROUGH 12.7 UG/ML (10.0-20.0)
[2020-12-07 19:31] LABS: ERYTHROCYTE SEDIMENTATION RATE 74 mm/hr (0-20)
== END ==
LOC: M SHH 18:31
PROVIDERS: ATTEND Internal Medicine Infectious Disease
DX: M46.26 Osteomyelitis of vertebra, lumbar region (principal); M46.46 Discitis, unspecified, lumbar region; M46.96 Unspecified inflammatory spondylopathy, lumbar region

== ENCOUNTER → 2020-12-14 | Outpatient (REF) | payer MEDICARE ==
[2020-12-14 17:07] LABS: BASO # 0.1 10^3/uL (0.0-0.2); BASO % 0.6 % (0.0-1.0); EOS # 0.2 10^3/uL (0.0-0.5); HEMATOCRIT 47.3 % (42.0-52.0); HEMOGLOBIN 14.6 g/dl (13.5-17.5); LYMPH # 1.3 10^3/uL (1.5-5.0); LYMPH % 15.8 % (24.0-44.0); MEAN CORPUSCULAR HEMOGLOBIN 29.4 pg (27.0-33.0); MEAN CORPUSCULAR HGB CONC 30.9 g/dl (32.0-36.5); MEAN CORPUSCULAR VOLUME 95.2 fl (80.0-96.0); MONO # 0.9 10^3/uL (0.0-0.8); MONO % 10.8 % (2.0-8.0); NEUTROPHILS % 70.4 % (36.0-66.0); PLATELET COUNT, AUTOMATED 285 10^3/uL (150-450); RED BLOOD COUNT 4.97 10^6/uL (4.30-6.10); WHITE BLOOD COUNT 8.5 10^3/uL (4.0-10.0)
[2020-12-14 18:14] LABS: ALBUMIN 3.3 GM/DL (3.2-5.2); ALT/SGPT 25 U/L (12-78); BILIRUBIN,TOTAL 0.6 MG/DL (0.2-1.0); BLOOD UREA NITROGEN 15 MG/DL (7-18); CALCIUM LEVEL 9.4 MG/DL (8.8-10.2); CARBON DIOXIDE LEVEL 19 MEQ/L (21-32); CHLORIDE LEVEL 104 MEQ/L (98-107); CREATININE FOR GFR 1.06 MG/DL (0.70-1.30); GLOMERULAR FILTRATION RATE > 60.0 (>42); GLUCOSE, FASTING 84 MG/DL (70-100); POTASSIUM SERUM 4.3 MEQ/L (3.5-5.1); SODIUM LEVEL 136 MEQ/L (136-145); VANCOMYCIN LEVEL TROUGH 11.9 UG/ML (10.0-20.0)
== END ==
LOC: M SHH 15:52
PROVIDERS: ATTEND Internal Medicine Infectious Disease
DX: M46.26 Osteomyelitis of vertebra, lumbar region (principal); M46.46 Discitis, unspecified, lumbar region; E78.5 Hyperlipidemia, unspecified; E89.0 Postprocedural hypothyroidism

== ENCOUNTER → 2020-12-14 | Outpatient (REF) | payer MEDICARE ==
[2020-12-14 18:22] LABS: CHOLESTEROL RISK RATIO 5.526 (<5); THYROID STIMULATING HORMONE 2.25 uIU/ML (0.358-3.740)
== END ==
LOC: M SHH 15:54
PROVIDERS: ATTEND Family Medicine
DX: E78.5 Hyperlipidemia, unspecified (principal); E89.0 Postprocedural hypothyroidism

== ENCOUNTER → 2020-12-30 | Outpatient (REF) | payer MEDICARE ==
[2020-12-30 19:18] LABS: BASO % 0.4 % (0.0-1.0); EOS # 0.4 10^3/uL (0.0-0.5); EOS % 5.6 % (0.0-3.0); HEMATOCRIT 39.4 % (42.0-52.0); HEMOGLOBIN 12.6 g/dl (13.5-17.5); LYMPH # 1.8 10^3/uL (1.5-5.0); LYMPH % 25.2 % (24.0-44.0); MEAN CORPUSCULAR HEMOGLOBIN 28.7 pg (27.0-33.0); MEAN CORPUSCULAR VOLUME 89.7 fl (80.0-96.0); MONO # 0.7 10^3/uL (0.0-0.8); MONO % 10.6 % (2.0-8.0); NEUTROPHILS % 57.8 % (36.0-66.0); PLATELET COUNT, AUTOMATED 251 10^3/uL (150-450); RED BLOOD COUNT 4.39 10^6/uL (4.30-6.10)
[2020-12-30 19:38] LABS: ERYTHROCYTE SEDIMENTATION RATE 71 mm/hr (0-20)
[2020-12-30 19:52] LABS: ALBUMIN 3.2 GM/DL (3.2-5.2); ALT/SGPT 30 U/L (12-78); BILIRUBIN,TOTAL 0.3 MG/DL (0.2-1.0); BLOOD UREA NITROGEN 18 MG/DL (7-18); C REACTIVE PROTEIN QUANTITATIV 0.62 MG/DL (0.00-0.30); CALCIUM LEVEL 8.9 MG/DL (8.8-10.2); CARBON DIOXIDE LEVEL 29 MEQ/L (21-32); CHLORIDE LEVEL 103 MEQ/L (98-107); CREATININE FOR GFR 0.93 MG/DL (0.70-1.30); GLOMERULAR FILTRATION RATE > 60.0 (>42); GLUCOSE, FASTING 88 MG/DL (70-100); POTASSIUM SERUM 4.2 MEQ/L (3.5-5.1); SODIUM LEVEL 140 MEQ/L (136-145); TOTAL PROTEIN 6.8 GM/DL (6.4-8.2)
== END ==
LOC: M SHH 18:39
PROVIDERS: ATTEND Internal Medicine Infectious Disease
DX: M46.47 Discitis, unspecified, lumbosacral region (principal)

== ENCOUNTER → 2021-01-04 | Outpatient (REF) | payer MEDICARE ==
[2021-01-04 13:55] LABS: BASO % 0.6 % (0.0-1.0); EOS # 0.5 10^3/uL (0.0-0.5); EOS % 7.4 % (0.0-3.0); HEMOGLOBIN 12.2 g/dl (13.5-17.5); LYMPH # 1.3 10^3/uL (1.5-5.0); LYMPH % 20.1 % (24.0-44.0); MEAN CORPUSCULAR HEMOGLOBIN 28.1 pg (27.0-33.0); MEAN CORPUSCULAR HGB CONC 31.3 g/dl (32.0-36.5); MEAN CORPUSCULAR VOLUME 89.9 fl (80.0-96.0); MONO # 0.5 10^3/uL (0.0-0.8); MONO % 8.2 % (2.0-8.0); NEUTROPHILS % 63.4 % (36.0-66.0); PLATELET COUNT, AUTOMATED 219 10^3/uL (150-450); RED BLOOD COUNT 4.34 10^6/uL (4.30-6.10); WHITE BLOOD COUNT 6.4 10^3/uL (4.0-10.0)
[2021-01-04 14:19] LABS: ALBUMIN 3.4 GM/DL (3.2-5.2); ALT/SGPT 33 U/L (12-78); BILIRUBIN,TOTAL 0.4 MG/DL (0.2-1.0); BLOOD UREA NITROGEN 12 MG/DL (7-18); CALCIUM LEVEL 8.7 MG/DL (8.8-10.2); CARBON DIOXIDE LEVEL 28 MEQ/L (21-32); CHLORIDE LEVEL 102 MEQ/L (98-107); CREATININE FOR GFR 1.02 MG/DL (0.70-1.30); GLOMERULAR FILTRATION RATE > 60.0 (>42); GLUCOSE, FASTING 140 MG/DL (70-100); POTASSIUM SERUM 4.2 MEQ/L (3.5-5.1); SODIUM LEVEL 137 MEQ/L (136-145); TOTAL PROTEIN 6.6 GM/DL (6.4-8.2); VANCOMYCIN LEVEL TROUGH 13.6 UG/ML (10.0-20.0)
[2021-01-04 15:00] LABS: ERYTHROCYTE SEDIMENTATION RATE 52 mm/hr (0-20)
== END ==
LOC: M LAB REF 13:30
PROVIDERS: ATTEND Internal Medicine Infectious Disease
DX: M46.47 Discitis, unspecified, lumbosacral region (principal)

== ENCOUNTER → 2021-01-11 | Outpatient (REF) | payer MEDICARE ==
[2021-01-11 17:52] LABS: EOS % 6.8 % (0.0-3.0); HEMATOCRIT 39.2 % (42.0-52.0); HEMOGLOBIN 12.3 g/dl (13.5-17.5); LYMPH % 18.7 % (24.0-44.0); MEAN CORPUSCULAR HGB CONC 31.4 g/dl (32.0-36.5); MEAN CORPUSCULAR VOLUME 89.1 fl (80.0-96.0); MONO % 10.4 % (2.0-8.0); NEUTROPHILS % 63.3 % (36.0-66.0); PLATELET COUNT, AUTOMATED 172 10^3/uL (150-450); WHITE BLOOD COUNT 7.5 10^3/uL (4.0-10.0)
[2021-01-11 17:53] LABS: BASO % 0.4 % (0.0-1.0); EOS # 0.5 10^3/uL (0.0-0.5); LYMPH # 1.4 10^3/uL (1.5-5.0); MONO # 0.8 10^3/uL (0.0-0.8); NEUTROPHILS # 4.8 10^3/uL (1.5-8.5)
[2021-01-11 18:20] LABS: ALBUMIN 3.6 GM/DL (3.2-5.2); ALT/SGPT 32 U/L (12-78); BILIRUBIN,TOTAL 0.6 MG/DL (0.2-1.0); BLOOD UREA NITROGEN 17 MG/DL (7-18); C REACTIVE PROTEIN QUANTITATIV 0.49 MG/DL (0.00-0.30); CALCIUM LEVEL 9.2 MG/DL (8.8-10.2); CARBON DIOXIDE LEVEL 31 MEQ/L (21-32); CHLORIDE LEVEL 100 MEQ/L (98-107); CREATININE FOR GFR 1.21 MG/DL (0.70-1.30); GLOMERULAR FILTRATION RATE > 60.0 (>42); GLUCOSE, FASTING 93 MG/DL (70-100); POTASSIUM SERUM 4.2 MEQ/L (3.5-5.1); SODIUM LEVEL 137 MEQ/L (136-145)
[2021-01-11 18:47] LABS: ERYTHROCYTE SEDIMENTATION RATE 55 mm/hr (0-20)
== END ==
LOC: M LAB REF 16:36
PROVIDERS: ATTEND Internal Medicine Infectious Disease
DX: M46.47 Discitis, unspecified, lumbosacral region (principal)

== ENCOUNTER → 2021-02-01 | Outpatient (REF) | payer MEDICARE ==
[2021-02-02 13:05] LABS: CALCIUM LEVEL 9.1 MG/DL (8.8-10.2); CREATININE FOR GFR 1.3 MG/DL (0.70-1.30); GLOMERULAR FILTRATION RATE 57.6 (>42); POTASSIUM SERUM 4.1 MEQ/L (3.5-5.1)
== END ==
LOC: M SFHCCLAY 13:29
PROVIDERS: ATTEND Family Medicine
DX: M46.46 Discitis, unspecified, lumbar region (principal)

== ENCOUNTER → 2021-10-22 | Outpatient (REF) | payer MEDICARE ==
[~2021-10-22] MED LIST changes: -D31000TA2 PO; +ECOT325T6 PO; -ECOT325T7 PO; +TIZA10TA PO; -TIZA4TAB4 PO; +VITA100093 PO
[2021-10-22 16:07] LABS: BASO % 0.4 % (0.0-1.0); EOS # 0.3 10^3/uL (0.0-0.5); EOS % 3.3 % (0.0-3.0); HEMATOCRIT 44.3 % (42.0-52.0); HEMOGLOBIN 14.7 g/dl (13.5-17.5); LYMPH # 2.4 10^3/uL (1.5-5.0); MEAN CORPUSCULAR HEMOGLOBIN 29.7 pg (27.0-33.0); MEAN CORPUSCULAR HGB CONC 33.2 g/dl (32.0-36.5); MEAN CORPUSCULAR VOLUME 89.5 fl (80.0-96.0); MONO # 0.5 10^3/uL (0.0-0.8); MONO % 6.8 % (2.0-8.0); NEUTROPHILS # 4.4 10^3/uL (1.5-8.5); NEUTROPHILS % 58.1 % (36.0-66.0); PLATELET COUNT, AUTOMATED 208 10^3/uL (150-450); RED BLOOD COUNT 4.95 10^6/uL (4.30-6.10); WHITE BLOOD COUNT 7.6 10^3/uL (4.0-10.0)
[2021-10-22 16:21] LABS: ALBUMIN 4.2 GM/DL (3.2-5.2); BILIRUBIN,TOTAL 0.9 MG/DL (0.2-1.0); CALCIUM LEVEL 9.1 MG/DL (8.8-10.2); CHOLESTEROL RISK RATIO 5.512 (<5); CREATININE FOR GFR 1.54 MG/DL (0.70-1.30); GLOMERULAR FILTRATION RATE 47.4 (>42); POTASSIUM SERUM 4.3 MEQ/L (3.5-5.1); THYROID STIMULATING HORMONE 2.17 uIU/ML (0.358-3.740); TOTAL PROTEIN 7.5 GM/DL (6.4-8.2)
== END ==
LOC: M SFHCCLAY 13:37
PROVIDERS: ATTEND Family Medicine
DX: I10 Essential (primary) hypertension (principal); E89.0 Postprocedural hypothyroidism; E78.5 Hyperlipidemia, unspecified

== ENCOUNTER → 2022-04-18 | Outpatient (CLI) | payer MEDICARE | LOC: M CLY 10:37 | PROVIDERS: ATTEND Family Medicine | DX: M79.604 Pain in right leg (principal); M17.11 Unilateral primary osteoarthritis, right knee ==

== ENCOUNTER → 2022-04-18 | Outpatient (REF) | payer MEDICARE ==
[2022-04-18 18:47] LABS: BASO % 0.6 % (0.0-1.0); EOS # 0.3 10^3/uL (0.0-0.5); HEMATOCRIT 45.3 % (42.0-52.0); HEMOGLOBIN 15.2 g/dl (13.5-17.5); LYMPH # 1.9 10^3/uL (1.5-5.0); LYMPH % 29.5 % (24.0-44.0); MEAN CORPUSCULAR HEMOGLOBIN 29.7 pg (27.0-33.0); MEAN CORPUSCULAR HGB CONC 33.6 g/dl (32.0-36.5); MEAN CORPUSCULAR VOLUME 88.5 fl (80.0-96.0); MONO # 0.5 10^3/uL (0.0-0.8); MONO % 8.3 % (2.0-8.0); NEUTROPHILS # 3.7 10^3/uL (1.5-8.5); NEUTROPHILS % 57.4 % (36.0-66.0); PLATELET COUNT, AUTOMATED 208 10^3/uL (150-450); RED BLOOD COUNT 5.12 10^6/uL (4.30-6.10); WHITE BLOOD COUNT 6.5 10^3/uL (4.0-10.0)
[2022-04-18 19:33] LABS: ALBUMIN 3.8 GM/DL (3.2-5.2); BILIRUBIN,TOTAL 0.7 MG/DL (0.2-1.0); CALCIUM LEVEL 9.3 MG/DL (8.8-10.2); CREATININE FOR GFR 1.39 MG/DL (0.70-1.30); GLOMERULAR FILTRATION RATE 53.2 (>42); MAGNESIUM LEVEL 2.1 MG/DL (1.8-2.4); POTASSIUM SERUM 4.4 MEQ/L (3.5-5.1); THYROID STIMULATING HORMONE 1.62 uIU/ML (0.358-3.740); TOTAL PROTEIN 7.3 GM/DL (6.4-8.2)
== END ==
LOC: M SFHCCLAY 10:33
PROVIDERS: ATTEND Family Medicine
DX: I10 Essential (primary) hypertension (principal); E89.0 Postprocedural hypothyroidism; M17.11 Unilateral primary osteoarthritis, right knee

== ENCOUNTER → 2022-10-13 | Outpatient (REF) | payer MEDICARE ==
[2022-10-13 17:46] LABS: ALBUMIN 4.1 G/DL (3.2-5.2); ALKALINE PHOSPHATASE 75 U/L (46-116); ALT/SGPT 19 U/L (7.0-40); AST/SGOT 22 U/L (<34); BILIRUBIN,TOTAL 0.9 MG/DL (0.3-1.2); BLOOD UREA NITROGEN 17 MG/DL (9-23); CALCIUM LEVEL 9.1 MG/DL (8.3-10.6); CARBON DIOXIDE LEVEL 28 MMOL/L (20-31); CHLORIDE LEVEL 104 MMOL/L (98-107); CHOLESTEROL LEVEL 194 MG/DL (<200); CHOLESTEROL RISK RATIO 4.41 (<5); CREATININE FOR GFR 1.17 MG/DL (0.70-1.30); GLOMERULAR FILTRATION RATE > 60.0 (>42); GLUCOSE, FASTING 96 MG/DL (74-106); HDL CHOLESTEROL 43.9 MG/DL (>40); LDL CHOLESTEROL 123.5 MG/DL (<100); NON-HDL-C 150.1 MG/DL; POTASSIUM SERUM 4.1 MMOL/L (3.5-5.1); SODIUM LEVEL 138 MMOL/L (136-145); TOTAL PROTEIN 6.9 G/DL (5.7-8.2); TRIGLYCERIDES LEVEL 133 MG/DL (<150)
[2022-10-13 17:47] LABS: THYROID STIMULATING HORMONE 0.714 uIU/ML (0.55-4.78)
== END ==
LOC: M SFHCCLAY 14:07
PROVIDERS: ATTEND Family Medicine
DX: E78.5 Hyperlipidemia, unspecified (principal); I10 Essential (primary) hypertension; E89.0 Postprocedural hypothyroidism

== ENCOUNTER → 2023-06-02 | Outpatient (REF) | payer MEDICARE ==
[2023-06-02 17:40] LABS: HEMATOCRIT 45.7 % (42.0-52.0); HEMOGLOBIN 15.1 g/dl (13.5-17.5); MEAN CORPUSCULAR HEMOGLOBIN 30.3 pg (27.0-33.0); MEAN CORPUSCULAR VOLUME 91.6 fl (80.0-96.0); PLATELET COUNT, AUTOMATED 222 10^3/uL (150-450); RED BLOOD COUNT 4.99 10^6/uL (4.30-6.10); WHITE BLOOD COUNT 7.6 10^3/uL (4.0-10.0)
[2023-06-02 18:09] LABS: ALBUMIN 3.8 G/DL (3.2-5.2); ALKALINE PHOSPHATASE 83 U/L (46-116); ALT/SGPT 21 U/L (7.0-40); AST/SGOT 19 U/L (<34); BILIRUBIN,TOTAL 0.8 MG/DL (0.3-1.2); BLOOD UREA NITROGEN 22 MG/DL (9-23); CALCIUM LEVEL 9.3 MG/DL (8.3-10.6); CARBON DIOXIDE LEVEL 30 MMOL/L (20-31); CHLORIDE LEVEL 106 MMOL/L (98-107); CREATININE FOR GFR 1.14 MG/DL (0.70-1.30); GLOMERULAR FILTRATION RATE > 60.0 (>42); GLUCOSE, FASTING 81 MG/DL (74-106); POTASSIUM SERUM 4.7 MMOL/L (3.5-5.1); SODIUM LEVEL 139 MMOL/L (136-145); TOTAL PROTEIN 6.7 G/DL (5.7-8.2)
[2023-06-02 18:13] LABS: THYROID STIMULATING HORMONE 1.703 uIU/ML (0.55-4.78)
== END ==
LOC: M SFHCCLAY 10:59
PROVIDERS: ATTEND Family Medicine
DX: I10 Essential (primary) hypertension (principal); E89.0 Postprocedural hypothyroidism

== ENCOUNTER → 2024-02-29 | Outpatient (REF) | payer MEDICARE ==
[2024-02-29 17:37] LABS: HEMATOCRIT 47.1 % (42.0-52.0); MEAN CORPUSCULAR HEMOGLOBIN 30.9 pg (27.0-33.0); MEAN CORPUSCULAR VOLUME 91.1 fl (80.0-96.0); PLATELET COUNT, AUTOMATED 185 10^3/uL (150-450); RED BLOOD COUNT 5.17 10^6/uL (4.30-6.10); WHITE BLOOD COUNT 7.6 10^3/uL (4.0-10.0)
[2024-02-29 18:05] LABS: ALBUMIN 3.9 G/DL (3.2-5.2); BILIRUBIN,TOTAL 0.8 MG/DL (0.3-1.2); CALCIUM LEVEL 9.7 MG/DL (8.3-10.6); CHOLESTEROL RISK RATIO 4.57 (<5); CREATININE FOR GFR 1.29 MG/DL (0.70-1.30); GLOMERULAR FILTRATION RATE 57.6 (>42); HDL CHOLESTEROL 48.1 MG/DL (>40); LDL CHOLESTEROL 131.9 MG/DL (<100); NON-HDL-C 171.9 MG/DL; POTASSIUM SERUM 4.9 MMOL/L (3.5-5.1); TOTAL PROTEIN 6.9 G/DL (5.7-8.2)
[2024-02-29 18:08] LABS: FREE T4 1.47 NG/DL (0.89-1.76)
[2024-02-29 18:09] LABS: THYROID STIMULATING HORMONE 3.007 uIU/ML (0.55-4.78)
== END ==
LOC: M SFHCCLAY 10:25
PROVIDERS: ATTEND Family Medicine
DX: I10 Essential (primary) hypertension (principal); E78.5 Hyperlipidemia, unspecified; E89.0 Postprocedural hypothyroidism

== ENCOUNTER → 2024-02-29 | Outpatient (CLI) | payer MEDICARE | LOC: M CLY 10:47 | PROVIDERS: ATTEND Family Medicine | DX: R06.02 Shortness of breath (principal) ==

== ENCOUNTER → 2024-05-29 | Outpatient (CLI) | payer MEDICARE ==
[~2024-05-29] MED LIST changes: -CYCL5TAB PO; +CYCL5TAB4 PO
== END ==
LOC: M CLY 09:57
PROVIDERS: ATTEND Physician Assistant
DX: M85.88 Other specified disorders of bone density and structure, other site (principal); M25.561 Pain in right knee

== ENCOUNTER → 2025-02-28 | Outpatient (REF) | payer MEDICARE ==
[~2025-02-28] MED LIST changes: -PRAV40TA2 PO; +PRAV40TA85 PO
[2025-02-28 18:52] LABS: ALT/SGPT 11 U/L (7.0-40); AST/SGOT 15 U/L (<34); CALCIUM LEVEL 9.3 MG/DL (8.3-10.6); CARBON DIOXIDE LEVEL 29 MMOL/L (20-31); CHLORIDE LEVEL 104 MMOL/L (98-107); CHOLESTEROL LEVEL 202 MG/DL (<200); CHOLESTEROL RISK RATIO 5.38 (<5); CREATININE FOR GFR 1.30 MG/DL (0.70-1.30); GLOMERULAR FILTRATION RATE 56.6 (>42); MAGNESIUM LEVEL 2.0 MG/DL (1.8-2.4); NON-HDL-C 164.5 MG/DL; POTASSIUM SERUM 4.3 MMOL/L (3.5-5.1); SODIUM LEVEL 141 MMOL/L (136-145); TRIGLYCERIDES LEVEL 547 MG/DL (<150)
[2025-02-28 18:53] LABS: FREE T4 1.68 NG/DL (0.89-1.76)
[2025-02-28 18:56] LABS: BASO # 0.0 10^3/uL (0.0-0.2); BASO % 0.5 % (0.0-1.0); EOS # 0.5 10^3/uL (0.0-0.5); EOS % 5.9 % (0.0-3.0); LYMPH # 2.0 10^3/uL (1.5-5.0); LYMPH % 23.9 % (24.0-44.0); MONO # 0.7 10^3/uL (0.0-0.8); MONO % 8.6 % (2.0-8.0); NEUTROPHILS # 5.1 10^3/uL (1.5-8.5); NEUTROPHILS % 60.9 % (36.0-66.0); PLATELET COUNT, AUTOMATED 205 10^3/uL (150-450)
== END ==
LOC: M SFHCCLAY 14:25
PROVIDERS: ATTEND Family Medicine
DX: I10 Essential (primary) hypertension (principal); E89.0 Postprocedural hypothyroidism; E78.5 Hyperlipidemia, unspecified